=== PATIENT | male | born 1960 | race African-American/Black ===

== ENCOUNTER 2018-12-05 12:40 | Emergency (ER) | payer MEDICAID ==
[~2018-12-05] VITALS: Ht 167.6 cm; Wt 95.0 kg
[2018-12-05 15:21] VITALS: BP 151/80
== END 2018-12-05 16:07 | disposition left against medical advice (07) ==
LOC: ER 12:56
DX: M79.641 Pain in right hand (principal); I25.2 Old myocardial infarction; I10 Essential (primary) hypertension; I25.10 Atherosclerotic heart disease of native coronary artery without angina pectoris; E11.9 Type 2 diabetes mellitus without complications
CPT/HCPCS: 99281

== ENCOUNTER 2018-12-06 06:39 | Emergency (ER) | payer MEDICAID ==
[~2018-12-06] VITALS: Ht 165.1 cm; Wt 98.0 kg
[2018-12-06] MEDS ORDERED: HYDROCODONE/ACETAMINOPHEN 5/325MG TABLET PO ONE (07:30)
[2018-12-06 09:39] VITALS: BP 147/72
== END 2018-12-06 09:40 | disposition home or self-care (01) ==
LOC: ER 06:39
DX: M25.571 Pain in right ankle and joints of right foot (principal)
CPT/HCPCS: 73590; 73610; 82962; 99284; Z7610

== ENCOUNTER 2018-12-18 09:45 | Emergency (ER) | payer MEDICAID ==
[~2018-12-18] VITALS: Ht 167.6 cm; Wt 96.0 kg
[2018-12-18] MEDS ORDERED: SODIUM BICARBONATE 4% (2.4MEQ) 5ML VIAL IV ONE (13:18)
[2018-12-18] MEDS ORDERED: LIDOCAINE HCL/PF 1% 10 MG/ML 5ML VIAL ONE (13:18)
[2018-12-18 13:32] VITALS: BP 148/89
== END 2018-12-18 13:33 | disposition home or self-care (01) ==
LOC: ER 09:45
DX: S62.332A Displaced fracture of neck of third metacarpal bone, right hand, initial encounter for closed fracture (principal); J45.909 Unspecified asthma, uncomplicated; E11.9 Type 2 diabetes mellitus without complications; I10 Essential (primary) hypertension; I25.2 Old myocardial infarction; Z95.5 Presence of coronary angioplasty implant and graft; V49.88XA Car occupant (driver) (passenger) injured in other specified transport accidents, initial encounter; Y93.89 Activity, other specified; Y92.89 Other specified places as the place of occurrence of the external cause; Y99.8 Other external cause status
CPT/HCPCS: 29125; 73130; 99283; J3490

== ENCOUNTER 2019-01-21 20:27 | Inpatient (IN) | payer MEDICAID ==
[~2019-01-21] VITALS: Ht 167.6 cm; Wt 95.3 kg
[2019-01-21] MEDS ORDERED: ASPIRIN 325MG TABLET PO ONE (21:15)
[2019-01-21 21:34] LABS: BASOPHILS % 0.8 % (0.0-2.0); EOSINOPHILS % 1.9 % (0.0-5.0); HEMATOCRIT. 37.3 % (42.0-52.0); HEMOGLOBIN. 12.5 g/dL (14.0-18.0); LYMPHOCYTES % 27.3 % (20.0-50.0); MEAN CORPUSCULAR HEMOGLOBIN 29.5 pg (28.0-32.0); MEAN CORPUSCULAR VOLUME 87.6 fL (80.0-94.0); MEAN PLATELET VOLUME 7.7 fl (7.4-10.4); MONOCYTES % 8.2 % (2.0-8.0); NEUTROPHILS % 61.8 % (40.0-76.0); PLATELET 244 x1000/uL (130-400); RED BLOOD CELL COUNT 4.26 mill/uL (4.7-6.1); RED CELL DISTRIBUTION WIDTH 14.5 % (11.6-14.6)
[2019-01-21 21:39] LABS: CHLORIDE 111 mEq/L (98-107)
[2019-01-21] MEDS ORDERED: NITROGLYCERIN OINT 1GM/INCH UDPKT TD ONE (23:30)
[2019-01-22 08:19] VITALS: BP 162/88
[2019-01-22] MEDS: NITROGLYCERIN OINT 1GM/INCH UDPKT TD PRN ×2 (08:31→08:34)
[2019-01-22] MEDS ORDERED: ASPI-1158 MT (09:58)
[2019-01-22] MEDS ORDERED: IBUP-2029 MT (09:58)
[2019-01-22] MEDS ORDERED: METOPROLOL TARTRATE 25MG TABLET PO SCH (10:00)
[2019-01-22] MEDS ORDERED: DEXTROSE 50% WATER 50ML SYRINGE IV PRN (10:00)
[2019-01-22 10:11] VITALS: BP 162/88
[2019-01-22] MEDS: ASPIRIN 81MG TABLET PO SCH (11:06)
[2019-01-22] MEDS: AMLODIPINE 5MG TABLET PO SCH ×2 (11:06→21:31)
[2019-01-22] MEDS: ACETAMINOPHEN 325MG TABLET PO PRN (11:07)
[2019-01-22] MEDS: BLOOD SUGAR DIAGNOSTIC STRIP TEST SCH ×3 (12:01→21:35)
[2019-01-22] MEDS: INSULIN LISPRO 100 UNITS/ML SUBCUT SCH ×4 (12:39→21:00)
[2019-01-22 16:00] VITALS: BP 154/85
[2019-01-22] MEDS: CLOPIDOGREL 75MG TABLET PO SCH (17:35)
[2019-01-22 18:54] LABS: HDL CHOLESTEROL 37 mg/dL (40-59)
[2019-01-22 19:02] LABS: LDL CHOLESTEROL 295 mg/dL (5-100)
[2019-01-22 20:00] VITALS: BP 181/75
[2019-01-22] MEDS ORDERED: LISINOPRIL 10MG TABLET PO SCH (21:00)
[2019-01-22] MEDS ORDERED: ATORVASTATIN CALCIUM 40MG TABLET PO SCH (21:00)
[2019-01-22] MEDS: LISINOPRIL 10MG TABLET PO SCH (21:31)
[2019-01-22] MEDS: METOPROLOL TARTRATE 50MG TABLET PO SCH (21:42)
[2019-01-23] VITALS: BP 161/73
[2019-01-23 04:00] VITALS: BP 152/73
[2019-01-23 06:30] LABS: BASOPHILS % 0.3 % (0.0-2.0); EOSINOPHILS % 3.1 % (0.0-5.0); HEMATOCRIT. 39.9 % (42.0-52.0); HEMOGLOBIN. 13.2 g/dL (14.0-18.0); LYMPHOCYTES % 36.4 % (20.0-50.0); MEAN CORPUSCULAR HEMOGLOBIN 29.3 pg (28.0-32.0); MEAN CORPUSCULAR VOLUME 88.5 fL (80.0-94.0); MEAN PLATELET VOLUME 8.2 fl (7.4-10.4); MONOCYTES % 13.7 % (2.0-8.0); NEUTROPHILS % 46.5 % (40.0-76.0); PLATELET 264 x1000/uL (130-400); RED CELL DISTRIBUTION WIDTH 14.4 % (11.6-14.6)
[2019-01-23 06:54] LABS: CHLORIDE 107 mEq/L (98-107)
[2019-01-23] MEDS: BLOOD SUGAR DIAGNOSTIC STRIP TEST SCH ×2 (07:10→12:10)
[2019-01-23] MEDS: INSULIN LISPRO 100 UNITS/ML SUBCUT SCH ×2 (07:40→12:10)
[2019-01-23 07:56] VITALS: BP 168/89
[2019-01-23] MEDS: CLOPIDOGREL 75MG TABLET PO SCH (08:02)
[2019-01-23] MEDS: LISINOPRIL 10MG TABLET PO SCH (08:02)
[2019-01-23] MEDS: ASPIRIN 81MG TABLET PO SCH (08:02)
[2019-01-23] MEDS: METOPROLOL TARTRATE 50MG TABLET PO SCH (08:02)
[2019-01-23] MEDS: AMLODIPINE 5MG TABLET PO SCH (08:02)
[2019-01-23] MEDS: ACETAMINOPHEN 325MG TABLET PO PRN (08:07)
[2019-01-23] MEDS ORDERED: CLONIDINE 0.2MG TABLET PO SCH (09:45)
[2019-01-23] MEDS ORDERED: REGADENOSON 0.4 MG/5 ML IV ONE (10:42)
[2019-01-23 12:00] VITALS: BP 137/85
[2019-01-23] MEDS ORDERED: REGADENOSON 0.4 MG/5 ML IV NR (14:45)
[2019-01-23 15:02] VITALS: BP 137/85
== END 2019-01-23 16:57 | disposition home or self-care (01) | DRG 203 ==
LOC: ER 20:27 → 8WST 01-22 02:11 → EDBEDREQTM 01-22 02:12 → EDBEDREQDT 01-22 02:12 → EDBEDREQ 01-22 02:12 → ENRESERV 01-22 07:20 → CANRESERV 01-22 07:20 → ENRESERV 01-22 08:21
PROVIDERS: ADMIT Internal Medicine; ATTEND Internal Medicine
DX: M94.0 Chondrocostal junction syndrome [Tietze] (principal); E87.8 Other disorders of electrolyte and fluid balance, not elsewhere classified; D64.9 Anemia, unspecified; E11.9 Type 2 diabetes mellitus without complications; G40.909 Epilepsy, unspecified, not intractable, without status epilepticus; E78.5 Hyperlipidemia, unspecified; I25.10 Atherosclerotic heart disease of native coronary artery without angina pectoris; R94.31 Abnormal electrocardiogram [ECG] [EKG]; J45.909 Unspecified asthma, uncomplicated; I10 Essential (primary) hypertension; S62.302A Unspecified fracture of third metacarpal bone, right hand, initial encounter for closed fracture; W18.30XA Fall on same level, unspecified, initial encounter; Y93.89 Activity, other specified; Y92.89 Other specified places as the place of occurrence of the external cause; Y99.8 Other external cause status; I25.2 Old myocardial infarction; Z95.5 Presence of coronary angioplasty implant and graft
CPT/HCPCS: 36415; 71045; 73120; 78452; 80048; 80061; 82962; 83880; 84443; 84484; 93005; 93306; 97162; 99285; A9500; J1815; J2785

== ENCOUNTER 2019-05-30 07:28 | Emergency (ER) | payer MEDICAID ==
[~2019-05-30] VITALS: Ht 165.1 cm; Wt 95.0 kg
[~2019-05-30 07:28] MED LIST: ASPI-1158 MT; IBUP-2029 MT
[2019-05-30 07:50] VITALS: BP 161/86
[2019-05-30] MEDS ORDERED: TETANUS, DIPHTHERIA, PERTUSSIS VAC/PF 0.5ML (>7YR OLD) IM ONE (08:30)
[2019-05-30] MEDS ORDERED: BACITRACIN ZINC OINT UDPKT TOP ONE (08:45)
== END 2019-05-31 05:11 | disposition home or self-care (01) ==
LOC: ER 07:28
DX: M25.571 Pain in right ankle and joints of right foot (principal); R07.89 Other chest pain; Y04.1XXA Assault by human bite, initial encounter; Y93.89 Activity, other specified; Y92.89 Other specified places as the place of occurrence of the external cause; Y99.8 Other external cause status; J45.909 Unspecified asthma, uncomplicated; I10 Essential (primary) hypertension; Z79.82 Long term (current) use of aspirin; Z79.899 Other long term (current) drug therapy
CPT/HCPCS: 71046; 73610; 90471; 90715; 99283

== ENCOUNTER 2024-07-04 11:50 | Emergency (ER) | payer MEDICARE, MEDICAID ==
[~2024-07-04] VITALS: Ht 167.6 cm; Wt 95.0 kg
[~2024-07-04 11:50] MED LIST changes: -ASPI-1158 MT; +ASPI-1406 MT
[2024-07-04 11:56] VITALS: O2SAT 98
[2024-07-04 12:25] LABS: BASOPHILS % 0.3 % (0.0-2.0); EOSINOPHILS % 1.7 % (0.0-5.0); HEMATOCRIT. 39.6 % (42.0-52.0); HEMOGLOBIN. 13.2 g/dL (14.0-18.0); LYMPHOCYTES % 32.6 % (20.0-50.0); MEAN CORPUSCULAR HEMOGLOBIN 29.4 pg (28.0-32.0); MEAN CORPUSCULAR HGB CONC 33.3 g/dL (31.0-37.0); MEAN CORPUSCULAR VOLUME 88.1 fL (80.0-94.0); MEAN PLATELET VOLUME 7.9 fl (7.4-10.4); NEUTROPHILS % 56.4 % (40.0-76.0); PLATELET 239 x1000/uL (130-400); RED BLOOD CELL COUNT 4.49 mill/uL (4.7-6.1); RED CELL DISTRIBUTION WIDTH 14.5 % (11.6-14.6)
[2024-07-04 12:31] LABS: CHLORIDE 106 mEq/L (98-107); SODIUM 139 mEq/L (136-145)
[2024-07-04 12:32] LABS: CALCIUM 9.5 mg/dL (8.7-10.4); CARBON DIOXIDE 26 mEq/L (21-32)
[2024-07-04 12:37] LABS: CREATININE 1.1 mg/dL (0.6-1.3); UREA NITROGEN BLOOD 14 mg/dL (9-23)
[2024-07-04 12:38] LABS: TROPONIN I HIGH SENSITIVITY 14 ng/L (3.0-53)
[2024-07-04 12:39] LABS: AMMONIA < 17 uMol/L (<32)
[2024-07-04] MEDS: ACETAMINOPHEN 325MG TABLET PO ONE (14:01)
[2024-07-04 14:28] LABS: ETHANOL BLOOD < 10 mg/dL (<10); GLUCOSE 285 mg/dL (70-105)
[2024-07-04 15:11] LABS: ALANINE AMINOTRANSFERASE 59 IU/L (10-49)
[2024-07-04 15:12] LABS: ALBUMIN 4.3 g/dL (3.2-4.8); ASPARTATE AMINOTRANSFERASE 27 IU/L (<34); BILIRUBIN TOTAL 0.4 mg/dL (0.1-1.0); PROTEIN TOTAL 7.2 g/dL (6.0-8.3)
[2024-07-04 15:35] LABS: BILIRUBIN DIRECT < 0.1 mg/dL (<=3.0)
[2024-07-04 15:42] LABS: CLARITY URINE CLEAR (CLEAR); COLOR URINE YELLOW (YELLOW); GLUCOSE URINE 2+ (NEGATIVE); KETONES URINE NEGATIVE (NEGATIVE); LEUKOCYTE ESTERASE URINE NEGATIVE (NEGATIVE); NITRITE URINE NEGATIVE (NEGATIVE); OCCULT BLOOD URINE NEGATIVE (NEGATIVE); PH URINE 5.5 (4.5-8.0); PROTEIN URINE TRACE (NEGATIVE); SPECIFIC GRAVITY URINE 1.035 (1.005-1.030); UROBILINOGEN URINE 0.2 E.U./dL (0.2-1.0)
[2024-07-04 15:55] LABS: *AMPHETAMINES SCREEN URINE NEGATIVE (NEGATIVE); *BARBITURATES SCREEN URINE NEGATIVE (NEGATIVE); *BENZODIAZEPINES SCREEN URINE NEGATIVE (NEGATIVE); *COCAINE SCREEN URINE NEGATIVE (NEGATIVE); CANNABINOID URINE SCREEN PRESUMPTIVE POSITIVE (NEGATIVE); ECSTASY MDMA SCREEN URINE NEGATIVE (NEGATIVE); METHADONE URINE SCREEN NEGATIVE (NEGATIVE); OPIATES URINE SCREEN NEGATIVE (NEGATIVE); PHENCYCLIDINE URINE SCREEN NEGATIVE (NEGATIVE)
[2024-07-04 16:09] LABS: CALCIUM OXALATE CRYSTALS URINE 1+ /lpf
[2024-07-04 16:10] LABS: BACTERIA URINE NONE SEEN; RBC URINE 0-2 /hpf (0-2); SQUAMOUS EPITHELIAL CELL URINE RARE /lpf (RARE/1+); WBC URINE 0-2 /hpf (0-2)
[2024-07-04 17:05] LABS: TROPONIN I HIGH SENSITIVITY 17 ng/L (3.0-53)
[2024-07-04 17:13] VITALS: BP 153/85; PULSE 78; RESP 14; TEMP 36.89184; O2SAT 97
== END 2024-07-04 18:57 | disposition home or self-care (01) ==
LOC: ER 11:50
DX: S01.21XA Laceration without foreign body of nose, initial encounter (principal); I10 Essential (primary) hypertension; Z79.82 Long term (current) use of aspirin; Z86.59 Personal history of other mental and behavioral disorders; W18.30XA Fall on same level, unspecified, initial encounter; Y93.89 Activity, other specified; Y92.89 Other specified places as the place of occurrence of the external cause; Y99.8 Other external cause status
CPT/HCPCS: 80076; 80305; 80048; 81003; 80320; 82140; 85025; 84484; 36415; 71045; 70450; 72125; 73700; 93005; 99285; Z7610 ×2; G0480